=== PATIENT | female | born 1995 | race Caucasian/White ===

== ENCOUNTER → 2019-04-30 12:40 | Outpatient (CLI) | payer OTHER, SELFPAY ==
[2019-05-01 08:18] LABS: Strep Grp B PCR NEG for Grp B Strep
== END ==
PROVIDERS: Visit Provider Specialist
DX: Z34.03 Encounter for supervision of normal first pregnancy, third trimester (principal); Z3A.35 35 weeks gestation of pregnancy
CPT/HCPCS: 87653

== ENCOUNTER 2019-05-20 10:31 | Inpatient (IN) | payer OTHER, SELFPAY ==
[2019-05-20 12:28] VITALS: BP 126/84
[2019-05-20 13:22] LABS: Add Manual Diff / Slide Review NO; Basophils Absolute Auto 0 /uL (0-100); Basophils Percent Auto 0.3 % (0-2); Eosinophils Absolute Auto 100 /uL (0-450); Eosinophils Percent Auto 0.5 % (2-4); Hematocrit 39.7 % (36-46); Hemoglobin 13.7 g/dL (12.0-16.0); Lymphocytes Absolute Auto 1800 /uL (1100-4500); Mean Corpuscular HGB Conc 34.6 % (30-36); Mean Corpuscular Hemoglobin 30.6 PG (26-34); Mean Corpuscular Volume 88.5 fL (80-100); Monocytes Absolute Auto 800 /uL (0-900); Neutrophils Absolute Auto 10000 /uL (1500-7000); Neutrophils Percent Auto 79.2 % (50-75); Platelet Count 145 X10^3/uL (150-400); Red Blood Cell Count 4.48 X10^6/uL (4.0-5.2); Red Cell Distribution Width 13.2 % (11.6-14.8); White Blood Cell Count 12.6 X10^3/uL (4.5-11.0)
--- NOTE | 2019-05-20 13:55 | P.HPOB_ITS ---
OB HPI Date/Time Date of admission: 05/20/19 Date Patient Seen: 05/20/19 Time Patient Seen: 13:55 History of Present Condition Chief complaint: OBSERVATION : 1 Para: 0 Estimated Date of Delivery: 05/30/19 Estimated Gestational Age (weeks): 38 Narrative: Krystyna Meadows is a 23 year old female admitted with spontaneous rupture of membranes History of Present care: good care, initiated at week # (10), number of visits (11) and pounds weight gain (66) Dating criteria: LMP confirmed by 1st trimester US Ultrasounds: normal mid trimester US Abnormal ultrasound findings: Bicornuate uterus Obstetrical complications: none Medical complications: none Preadmission Labs Blood type: O (+) positive -: Antibody screen: negative, GBS status: negative, HBsAG: negative and HIV: negative -: Chlamydia screen: not detected and Gonorrhea screen: not detected -: Rubella: immune HCAB: negative 1 hr GTT: 102 Evaluation Evaluation Baseline heart rate: 140 Variability: Moderate (11-25) monitor accelerations: Present monitor decelerations: Absent Contraction Frequency (minutes): 0 Category of Tracing: I Cervical dilation (cm): 1 Cervical effacement (%): 70 station: 0 Laboratory results: Laboratory Tests 05/20/19 13:00 WBC 12.6 H RBC 4.48 Hgb 13.7 Hct 39.7 MCV 88.5 MCH 30.6 MCHC 34.6 RDW 13.2 Plt Count 145 L Neut % (Auto) 79.2 H Lymph % (Auto) 14.0 L Garrett % (Auto) 6.0 Eos % (Auto) 0.5 L Baso % (Auto) 0.3 Neut # (Auto) 96409 H Lymph # (Auto) 1800 Garrett # (Auto) 800 Eos # (Auto) 100 Baso # (Auto) 0 Non-invasive Membranes Rupture Test: positive [facility] Medical History (Updated 03/08/19 @ 10:55 by Luna Granado MD) Bicornuate uterus (Acute) Family history of malignant neoplasm of colon in first degree relative diagnosed when younger than 60 years of age (Acute) Surgical History (Updated 03/06/19 @ 20:37 by Lupe Tong) Anesthesia (Resolved) History of colonoscopy (Resolved ~2016) Family History (Updated 03/06/19 @ 20:38 by Lupe Tong) Sister Colon cancer Sister Melanoma Grandmother Lung cancer Social History Smoking Status: Never smoker Meds Home Medications and Allergies Home Medications Medication Instructions Recorded Confirmed Type prenat.vits,makenna,[id number] 1 tab PO DAILY 02/28/19 02/28/19 History breast pump #1 each 03/28/19 03/28/19 Rx Allergies Allergy/AdvReac Type Severity Reaction Status Date / Time naproxen Allergy Severe Hives and Verified 02/28/19 15:39 Vision Loss Review of Systems Review of Systems Narrative: No headache, scotomata, epigastric pain. Good movement. No fevers. Spontaneous rupture membranes. ROS Unobtainable: All systems reviewed & are unremarkable except as noted in HPI and below Exam Vital Signs (past 8 hours): - Blood pressure 124/84, pulse 98, temperature 99? 05/20/19 12:28 Blood Pressure 126/84 Narrative Exam Narrative: HEENT exam within normal limits. Lungs are clear to auscultation percussion. Heart is regular rate and rhythm no S3-S4 or murmurs. Abdomen is soft, nontender. Extremities without edema and nontender Objective Labs Result Diagrams: 05/20/19 13:00 Labs: Laboratory Results - last 24 hr 05/20/19 13:00 WBC 12.6 H RBC 4.48 Hgb 13.7 Hct 39.7 MCV 88.5 MCH 30.6 MCHC 34.6 RDW 13.2 Plt Count 145 L Neut % (Auto) 79.2 H Lymph % (Auto) 14.0 L Garrett % (Auto) 6.0 Eos % (Auto) 0.5 L Baso % (Auto) 0.3 Neut # (Auto) 10174 H Lymph # (Auto) 1800 Garrett # (Auto) 800 Eos # (Auto) 100 Baso # (Auto) 0 Assessment and Plan Assessment and Plan Assessment and Plan narrative: 38 week 4 day gestation with bicornuate uterus, spontaneous rupture membranes not in labor, vertex fetus If no onset of labor will begin Pitocin Time Spent with Patient Total time spent with greater than 50% in coordination of care (as documented) at patient's floor/unit and/or counseling patient:: less than 15 minutes
[2019-05-20] MEDS: LACTATED RINGERS 1,000 ML 100 ML IV (15:27)
[2019-05-20] MEDS: OXYTOCIN PREMIX 30 UNIT/500 ML PLAST..BAG IV (15:28)
[2019-05-21] MEDS: LACTATED RINGERS 1,000 ML 100 ML IV ×2 (01:49→02:25)
[2019-05-21] MEDS: FENT 2MCG/ML BUPIV 0.125% EPI 200 MCG/100 ML PLAST..BAG 13 MCG EPIDURAL ×2 (02:26)
[2019-05-21] MEDS: CEFAZOLIN 2 GM/100 ML FROZ.PIGGY IV (08:30)
--- NOTE | 2019-05-21 08:36 | SUR.OPER ---
Lithotomy on padded OR bed, head on pillow, arms secured on padded arm boards at <90 degrees abduction. Legs secured in padded yellow fins stirrups.
[2019-05-21 08:50] VITALS: BP 106/68; PULSE 106; RESP 16; TEMP 36.4; O2SAT 99
[2019-05-21 08:53] VITALS: BP 108/63; PULSE 109; RESP 16; O2SAT 100
[2019-05-21 08:57] VITALS: BP 113/81; PULSE 97; RESP 18; O2SAT 100
[2019-05-21 09:03] VITALS: BP 123/72; PULSE 99; RESP 20; O2SAT 99
[2019-05-21 09:08] VITALS: BP 121/85; PULSE 95; RESP 17; O2SAT 98
[2019-05-21 09:11] VITALS: BP 115/79; PULSE 91; RESP 16; TEMP 37.3; O2SAT 100
--- NOTE | 2019-05-21 09:22 | SUR.PHASEI ---
Turned patient over and assessed jo-pad. Moderate amount of lochia noted. Fresh jo pad applied. Denies any pain.
--- NOTE | 2019-05-21 09:33 | SUR.PHASEI ---
Transferred patient to L&D in stable condition. Placenta contents in red bio-hazard back delivered to L&D unit.
--- NOTE | 2019-05-21 09:45 | P.PCNOB_ITS ---
Events: Meconium Stained Fluid (Thick) Labor & Delivery Delivery date: 05/21/19 Intrapartal events: Prolonged Latent Phase Delivery augmentation: pitocin Delivery monitor: external FHT and external uterine Route of delivery: L&D Laceration Description: Perineal - 1st Degree Delivery repair: chromic (3 0) Estimated blood loss (mL): 450 (Including blood loss in the operating room) Anesthesia type: Epidural Complications: Retained placenta requiring manual removal with curetting to remove retained placenta Narrative: Patient arrived on Labor and delivery after spontaneous rupture membranes with thick meconium. She did not go into active labor so Pitocin augmentation was started she received an epidural catheter for pain control. heart tones category 1 to category 2 throughout labor. She had a spontaneous vaginal delivery and the placed on maternal abdomen. After cord stopped pulsating the cord was clamped, cut, and cord bloods obtained. The placenta did not deliver spontaneously show she was taken to the operating room for manual removal. See the operative report for that portion of the delivery. Viable male doing well weighing 2916 g, 6 lb 7 oz. [place] Baby 1: gender: Male Presentation: vertex position: Right Occiput Anterior Placenta delivery description: Spontaneous cord vessel description: 3 Vessels score (1 min): 8 score (5 min): 9 Plan for aftercare: Routine post vaginal delivery with curettage for retained placenta
--- NOTE | 2019-05-21 09:49 | PM.OP.1 ---
Operative Date/Time/Diagnoses Date of procedure: 05/21/19 Time of procedure: 09:49 Pre-op diagnosis: Retained placenta Post-op diagnosis: same Procedure & Clinicians Procedure: Manual removal of placenta with uterine curettage Same procedure as scheduled: Yes Indications: Retained placenta Surgeon: Luna Granado Click Yes if Unassisted: Yes Anesthesia Type: Epidural Operative Notes Findings: Retained placenta with bicornuate uterus Closure Type: not applicable Specimen(s): other (Retained placenta ) Estimated Blood Loss (mL): 450 Blood products transfused: none Procedure in detail: Patient was brought to the operating room where she was placed in low Yellofin stirrups and prepped and draped in the usual sterile fashion. The bladder was drained with an in-and out catheter. A check system was reviewed with the staff in the room. She received 2 g of Ancef. A ring forcep was placed on the anterior and the posterior lip of the cervix. The placenta was manually removed from the right side of the uterus. Curettage was performed to remove the remainder of the retained products. It appeared that she had minimal bleeding at the end of the procedure. She went to recovery room in good condition. Counts of instruments and sponges were correct. Complications: none Post-operative Condition: stable Disposition: other ( Center) Plan for aftercare: Routine post vaginal delivery.
[2019-05-21] MEDS: IBUPROFEN 600 MG TABLET PO ×2 (11:14→19:41)
[2019-05-22] MEDS: IBUPROFEN 600 MG TABLET PO ×2 (04:07→09:48)
[2019-05-22 07:32] LABS: Add Manual Diff / Slide Review NO; Basophils Absolute Auto 0 /uL (0-100); Basophils Percent Auto 0.2 % (0-2); Eosinophils Absolute Auto 200 /uL (0-450); Hematocrit 32.1 % (36-46); Hemoglobin 10.8 g/dL (12.0-16.0); Lymphocytes Absolute Auto 2700 /uL (1100-4500); Lymphocytes Percent Auto 17.5 % (25-40); Mean Corpuscular HGB Conc 33.5 % (30-36); Mean Corpuscular Hemoglobin 30.5 PG (26-34); Mean Corpuscular Volume 90.8 fL (80-100); Monocytes Absolute Auto 1100 /uL (0-900); Neutrophils Absolute Auto 11600 /uL (1500-7000); Neutrophils Percent Auto 74.3 % (50-75); Platelet Count 107 X10^3/uL (150-400); Red Blood Cell Count 3.53 X10^6/uL (4.0-5.2); Red Cell Distribution Width 13.3 % (11.6-14.8); White Blood Cell Count 15.6 X10^3/uL (4.5-11.0)
[2019-05-22] MEDS: DOCUSATE 100 MG CAPSULE PO ×2 (08:28→09:47)
--- NOTE | 2019-05-22 09:32 | P.DS_ITS ---
Discharge Providers Provider Date of admission: 05/20/19 10:31 Discharge Date: 05/22/19 Primary care physician: Luna Granado MD Consults: 05/20/19 12:25 Consult to Anesthesiology Urgent Comment: Consulting Provider: Anesthesiologist Reason for consultation: Epidural Has provider been notified: No 05/22/19 09:42 Consult to Coat Finisher Routine Comment: Discharge provider: Luna Granado MD Summary Hospital Course Date Patient Seen: 05/22/19 Time Patient Seen: 09:33 Procedures: Pitocin augmentation of labor, epidural catheter, spontaneous vaginal delivery, manual removal of placenta with curettage Hospital Course: Patient arrived on Labor and delivery with spontaneous rupture membranes. She did not go into labor so was started on Pitocin. She received an epidural catheter for pain control. She had a spontaneous vaginal delivery. She had a retained placenta that required manual removal and curettage in the operating room. Patient denies any headaches, scotomata, epigastric pain. She is urinating and ambulating well. Pain is under control. Both mother doing well. Peripartum Data Infant Delivery Method: Natural Vaginal Laceration description: Vaginal - 1st Degree complications: retained placenta [place] 1: Gender: Male Disposition of : home Discharge Diagnosis (1) Vaginal delivery: Status: Acute (2) Retained placenta or membranes without hemorrhage: Status: Acute Status at Discharge Cognitive/behavioral status at discharge: oriented Functional status at discharge: independent ambulation Overall status at discharge: patient is progressing back to baseline Time Spent with Patient Time attestation: Total time spent providing and/or coordinating discharge services: Time spent: Less than 30 minutes Objective Labs Result Diagrams: 05/22/19 06:25 Labs: Laboratory Results - last 24 hr 05/22/19 06:25 WBC 15.6 H RBC 3.53 L Hgb 10.8 L Hct 32.1 L MCV 90.8 MCH 30.5 MCHC 33.5 RDW 13.3 Plt Count 107 L Neut % (Auto) 74.3 Lymph % (Auto) 17.[address] [place] % (Auto) 7.0 Eos % (Auto) 1.0 L Baso % (Auto) 0.2 Neut # (Auto) 61516 H Lymph # (Auto) 27[address] [place] # (Auto) 1100 H Eos # (Auto) 200 Baso # (Auto) 0 Exam Vital Signs (past 8 hours): Blood pressure 111/71, pulse of 90, temperature 97.9 ? Oxygen Delivery Method Room Air Narrative Exam Narrative: Abdomen is soft, nontender. Uterus is firm, at U, nontender. Repair is intact. Lochia is mild. Extremities without edema and nontender. Blood type is O positive, she is rubella immune, she received the Tdap in the 3rd trimester Discharge Plan Discharge Plan Patient Disposition: Home Discharge orders & Medications Prescriptions: New ibuprofen 600 mg Tablet 600 mg PO Q6HR PRN (Reason: Pain, Mild (1-3)) Qty: 20 RF: 0 Continued prenat.vits,makenna,[id number] Tablet 1 tab PO DAILY RF: 0 No Action (DME) breast pump [Pump In Style Advanced] Device See Rx Instructions .ROUTE .MEDSUPPLY Qty: 1 RF: 0 Follow up/Referrals: Luna Granado MD [Primary Care Provider] - 1 Month Diet/Activity/Treatments Diet: Regular Activity: Nothing in vagina for 4 weeks. Skin/Wound/Dressing Care Report to your healthcare provider any signs of infection, such as:: chills, fever and increased pain Visit Report/Discharge Packet Stand Alone Forms: Discharge: Care, Surgery Discharge Discharge Data Primary Care Provider: Luna Granado
[2019-05-22] MEDS: FERROUS GLUCONATE 324 MG TABLET PO (09:48)
== END 2019-05-22 16:30 | disposition home or self-care (01) | DRG 807 ==
PROVIDERS: Admitting Provider Specialist; PCP Specialist; Visit Provider Specialist
PROC: 10E0XZZ Delivery of Products of Conception, External Approach (ICD-10-PCS; CPT 58120; principal; 2019-05-21 08:30)
DX: O77.0 Labor and delivery complicated by meconium in amniotic fluid (principal); Z37.0 Single live birth; O63.0 Prolonged first stage (of labor); O73.0 Retained placenta without hemorrhage; Z3A.38 38 weeks gestation of pregnancy; O70.0 First degree perineal laceration during delivery; O34.03 Maternal care for unspecified congenital malformation of uterus, third trimester; Q51.3 Bicornate uterus
CPT/HCPCS: 01967; 36415; 59050; 59160; 59410; 84112; 85025; 86850; 86900; 86901; G0379; J0690; J2590

== ENCOUNTER → 2020-03-31 14:14 | Outpatient (CLI) | payer OTHER, SELFPAY ==
[2020-04-02 06:36] LABS: COVID19 Sendout Not Detected (Not Detect)
== END ==
PROVIDERS: PCP Specialist; Visit Provider Physician Assistant
DX: Z11.59 Encounter for screening for other viral diseases (principal)
CPT/HCPCS: 87635

== ENCOUNTER 2020-04-03 07:20 | Day surgery (SDC) | payer OTHER, SELFPAY ==
[2020-04-03 07:50] VITALS: BP 123/77; PULSE 111; RESP 18; TEMP 36.8; O2SAT 99; BMI 26.6
[2020-04-03] MEDS: LACTATED RINGERS 1,000 ML 200 ML IV (07:58)
--- NOTE | 2020-04-03 08:36 | PM.HP.1 ---
History of Present Illness History of Present Illness Date Patient Seen: 04/03/20 Time Patient Seen: 08:36 Chief complaint: SDC Narrative: The patient is a woman who sister had colon cancer at age 26. She had her 1st colonoscopy 5 years ago. She had a polyp removed at that time and was advised to have a colonoscopy in 3 years but then was and now is here for a follow-up colonoscopy. She did see a small amount of blood in her stool the week ago Patient History Medical History Bicornuate uterus (Acute) Family history of malignant neoplasm of colon in first degree relative diagnosed when younger than 60 years of age (Acute) Retained placenta or membranes without hemorrhage (Resolved) Vaginal delivery (Acute) Surgical History Anesthesia (Resolved) History of colonoscopy (Resolved ~2016) Family & Social History Family History Sister Colon cancer Sister Melanoma Grandmother Lung cancer Social History: household members spouse Tobacco & Substance use: Smoking Status Never smoker alcohol intake current alcohol intake frequency holiday/special occasion Substance Use Type does not use Meds Home Medications and Allergies Allergies Allergy/AdvReac Type Severity Reaction Status Date / Time naproxen Allergy Severe Hives and Verified 04/03/20 07:44 Vision Loss Review of Systems Review of Systems ROS: Yes All systems reviewed with the patient and are negative except as otherwise documented Exam Vital Signs (past 8 hours): - 04/03/20 07:50 Temperature 98.2 F Pulse Rate 111 H Respiratory Rate 18 Blood Pressure 123/77 Pulse Oximetry 99 Oxygen Delivery Method Room Air Narrative Exam Narrative: Pleasant cooperative patient no apparent distress. Lungs are clear to auscultation. No rales or rhonchi. Heart regular rate and rhythm no murmur gallop. Abdomen is soft nontender without mass. No obvious hernias. Patient is alert and oriented x3. Assessment & Plan Assessment & Plan narrative: The patient for a screening colonoscopy. I have discussed the procedure with them. Risks of bleeding, perforation which would necessitate major operation, failure to find remove all lesions, the potential tattoo were all discussed. All questions were answered. They wished to proceed. I also talked to the patient by considering genetic testing.
--- NOTE | 2020-04-03 08:42 | PM.PREOP ---
Pre-operative Note COVID-19 COVID-19 status: Negative Result date/Date tested (Pos, Neg/Pending): 03/31/20 Interval Note History & Physical reviewed/Exam performed by Physician: Yes Changes to H&P: No ASA Class (for procedural sedation): I
[2020-04-03] MEDS: MIDAZOLAM 5 MG/5 ML VIAL IV (08:47)
[2020-04-03] MEDS: fentaNYL 250 MCG/5 ML INJ IV (08:49)
--- NOTE | 2020-04-03 09:04 | PM.OP.ENDO ---
Operative Date/Time/Diagnoses Date of procedure: 04/03/20 Time of procedure: 09:04 Pre-op diagnosis: Sister with colon cancer at age 26. Screening exam in high risk patient. Last colonoscopy 5 years ago. Post-op diagnosis: same Procedure & Clinicians Study performed: Colonoscopy Same procedure as scheduled: Yes Indications: Screening Surgeon: Demarco Mcclendon Procedure Notes SCOAP/Timeout: Performed Procedure in detail: The patient was placed in the left lateral decubitus position and underwent IV sedation directed by the surgeon consisting of fentanyl and Versed. Digital exam was unremarkable except for an increased sphincter tone. The scope was inserted and advanced through the rectum into the sigmoid, descending, transverse, and ascending colon. No lesions were seen pressure was applied and we made our way to the cecum.. The cecum was reached identified by the ileocecal valve and the appendiceal opening. The ileocecal valve was successfully cannulated. The terminal ileum was normal in appearance. The scope was gradually brought out. No Polyps were found. The scope ultimately was retroflexed in the rectum. The appearance was normal except for minor scarring on small hemorrhoids. The scope was removed and the patient tolerated the procedure well. The prep was very good Scope withdrawal time: 7-1/2 minutes Sedation minutes: 20 Post-procedure Recommendations: Colonscopy in 5 years Follow up: as needed Disposition: PACU
[2020-04-03 09:06] VITALS: BP 120/71; PULSE 99; RESP 25; TEMP 37; O2SAT 97
[2020-04-03 09:11] VITALS: BP 115/67; PULSE 99; RESP 13; O2SAT 97
[2020-04-03 09:16] VITALS: BP 104/65; PULSE 105; RESP 20; TEMP 36.9; O2SAT 97
[2020-04-03 09:30] VITALS: BP 101/66; PULSE 87; RESP 15; TEMP 36.4; O2SAT 95
[2020-04-03 10:00] VITALS: BP 99/60; PULSE 72; RESP 15; TEMP 36.2; O2SAT 96
--- NOTE | 2021-04-30 15:30 | P.CALLCOV_ITS ---
Call Coverage Note Note Date of Patient Contact: 04/30/21 Time of Patient Contact: 15:30 Narrative of Care Provided: Krystyna, currently 8 wks EGA, called w/ c/o UTI and request for antibiotics. Has noticed progressively worsening dysuria, urgency and frequency, now feeling bladder and urethra discomfort at rest. No fever or hematuria. No back pain. Rx Amoxicillin/clavulanate 875mg BID sent to [facility], per her request, with instructions to go to urgent care if unable to wait until pharmacy opens.
== END 2020-04-03 10:12 | disposition home or self-care (01) ==
PROVIDERS: Referring Provider Specialist; Visit Provider Specialist
PROC: 0DJD8ZZ Inspection of Lower Intestinal Tract, Via Natural or Artificial Opening Endoscopic (ICD-10-PCS; CPT 45378; principal; 2020-04-03 08:30)
DX: Z12.11 Encounter for screening for malignant neoplasm of colon (principal); Z80.0 Family history of malignant neoplasm of digestive organs; Z86.010 Personal history of colon polyps; K64.8 Other hemorrhoids
CPT/HCPCS: 45378; 99152; J2250; J3010

== ENCOUNTER → 2021-05-05 08:26 | Outpatient (CLI) | payer OTHER, SELFPAY ==
[2021-05-05 09:02] LABS: Add Manual Diff / Slide Review NO; Basophils Absolute Auto 0 /uL (0-100); Basophils Percent Auto 0.3 % (0-2); Eosinophils Absolute Auto 100 /uL (0-450); Eosinophils Percent Auto 1.8 % (2-4); Hematocrit 40.2 % (36-46); Hemoglobin 13.8 g/dL (12.0-16.0); Lymphocytes Absolute Auto 1400 /uL (1100-4500); Lymphocytes Percent Auto 21.5 % (25-40); Mean Corpuscular HGB Conc 34.3 % (30-36); Mean Corpuscular Hemoglobin 29.3 PG (26-34); Mean Corpuscular Volume 85.4 fL (80-100); Monocytes Absolute Auto 500 /uL (0-900); Monocytes Percent Auto 7.6 % (3-14); Neutrophils Absolute Auto 4400 /uL (1500-7000); Neutrophils Percent Auto 68.8 % (50-75); Platelet Count 168 X10^3/uL (150-400); Red Blood Cell Count 4.71 X10^6/uL (4.0-5.2); Red Cell Distribution Width 13.1 % (11.6-14.8); White Blood Cell Count 6.4 X10^3/uL (4.5-11.0)
[2021-05-05 09:40] LABS: Appearance Urine UA CLEAR; Bilirubin Urine UA NEGATIVE (NEGATIVE); Color Urine UA YELLOW; Glucose Urine UA NEGATIVE (Negative); Ketones Urine UA NEGATIVE (NEGATIVE); Leukocyte Esterase Urine UA TRACE (NEGATIVE); Nitrite Urine UA NEGATIVE (Negative); Occult Blood Urine UA NEGATIVE (Negative); Protein Urine UA NEGATIVE (Negative); Specific Gravity Urine UA 1.015 (1.000-1.035); Urobilinogen Urine UA 0.2 E.U./dL (0.2)
[2021-05-05 10:02] LABS: pH Urine UA 6.5 (4.5-8.0)
[2021-05-05 10:55] LABS: Hepatitis B Surface Antigen NEGATIVE s/c (NEGATIVE)
[2021-05-05 11:11] LABS: HIV 1 & 2 Ab/Ag 4th Gen Combo NEGATIVE (NEGATIVE); Hep C Virus Ab w/Reflex Quant NEGATIVE s/c (NEGATIVE)
[2021-05-05 14:57] LABS: Urine N gonorrhoeae NOT DETECTED
[2021-05-05 15:08] LABS: Urine Chlamydia NOT DETECTED
[2021-05-06 10:07] LABS: RPR Screen Non Reactive (Non Reactive)
[2021-05-06 11:24] LABS: Varicella IgG Antibody 610 index (Immune >165)
== END ==
PROVIDERS: Referring Provider Specialist; Visit Provider Specialist
DX: Z34.81 Encounter for supervision of other normal pregnancy, first trimester (principal); Z3A.09 9 weeks gestation of pregnancy
CPT/HCPCS: 36415; 80055; 81003; 86787; 86803; 86850; 86900; 86901; 87086; 87389; 87491; 87591

== ENCOUNTER → 2021-05-19 09:56 | Outpatient (CLI) | payer OTHER, SELFPAY ==
--- NOTE | 2021-05-19 09:59 | DIET.PN1 ---
Addendum entered by Imani Montenegro 05/19/21 10:58: 1. diet recall shows pt may not meet FULLERETTE for calcium. Pt to check supplement for calcium level and if not meeting need through supp + food will call RD regarding supplementing with 250mg daily. 2. diet recall shows pt using non-iodized sea salt at home. Pt to check supplement for iodine level and if not meeting need through supp, pt will switch to iodized sea salt during or use wakame seaweed in soups to meet needs. Original Note: Dietary Progress Note Assessment: 25y F 11w December 07 due date. Pt has a child, 2y M, gained 70# (lost 40#) desires assistance with healthy eating during to avoid excessive weight gain. Pt did not have morning sickness in first , has this c vomiting. Pt took B6 and Unisom without relief, started on anti-emetics caused constipation which she [facility] and started bowel regimen- colase, miralax, suppositories. Carbs are soothing her morning sickness right now: bagel, breakfast sandwich, saltine crackers, goldfish difficulty with vegetables at this time Gatorade, Body Armor, jemima jaycee Pt currently taking vitamins at night. Usual Day (prepregnancy): B: eggs and toast L: leftovers (pasta, chicken, salad) D: chicken, brussels sprouts, healthy dinners sometimes popcorn while watching tv before bed doesn't eat much fish Physical Activity: Big walks with son in [facility] during summer but in winter less activity, wants help idea generating. Sleep: waking up to urinate twice per night now otherwise sleeps well, other child sleeping through night Ht: 5'8 Wt: 180# Current Weight: 185# Nutrition Diagnosis: predicted excessive weight gain in r/t physical inactivity inadequate intake dietary fiber aeb pt gained 70# with first only losing 40# after delivery, pt reports low physical activity in winter secondary to weather, pt diet high in simple carbs and low in dietary fiber. Interventions: 1. Discussed nutrition using several handouts- one from [facility], another from my nutrition class. Covered healthy plate balance, food safety, nutrients of concern, and MNT for constipation (increase fluids and soluble fiber). 2. Using food models, practiced building healthy plate meals and snacks. Discussed beans and nuts as good soluble fiber source but to portion control nuts secondary to high kcals levels. 3. Discussed barriers to regular physical activity. Encouraged 10 minute walks after meals with dinner walk being family walk. Discussed possibility of pt joining [facility] for swimming with toddler, walking on track, or utilizing their on site child advocate for pt to take yoga class, walk, swim, etc. 4. Introduced pt to meal plan from [employer] created by [place]. Monitoring/Evaluations: f/u prn Electronically Signed by: Imani Montenegro 05/19/21 09:59 Clinical Dietitian [address] [id number]
== END ==
PROVIDERS: Referring Provider Specialist; Visit Provider Specialist
DX: Z71.3 Dietary counseling and surveillance (principal); Z34.81 Encounter for supervision of other normal pregnancy, first trimester; Z3A.11 11 weeks gestation of pregnancy
CPT/HCPCS: 97802

== ENCOUNTER → 2021-08-06 09:18 | Outpatient (CLI) | payer OTHER, SELFPAY ==
--- NOTE | 2021-08-06 09:20 | DI.US.S_ITS ---
PROCEDURE: US OB >= 14 WEEKS FETUS INDICATIONS: ANATOMY OUTSIDE/PRIOR DATING DATA: First dating scan (date and location): 05/05/2021. Estimated date of delivery (SINDHU) from first dating scan: 12/07/2020. The calculations are made using the ultrasound SINDHU of 12/07/2020. TECHNIQUE: Real-time scanning was performed of the fetus, with image documentation and biometric measurements. COMPARISON: [facility], , US OB >= 14 WEEKS FETUS, 05/14/2019, 10:40. [facility], , US OB <= 14 WEEKS FETUS, 05/05/2021, 8:20. FINDINGS: General: A single living intrauterine gestation is present. Presentation: Transverse. Placenta: Placental position is anterior , without previa. Amniotic fluid index: 13.9 cm, normal range is 5-24 cm. heart rate: 125 beats per minute. Maternal cervical canal: 5.6 cm long. Normal lower limit is 2.5 cm. biometrics: Biparietal diameter: 22 weeks 5 days Head circumference: 22 weeks 4 days Abdominal circumference: 22 weeks 4 days Femur length: 22 weeks 3 days Clinically estimated gestational age: 22 weeks 3 days Composite gestational age from present scan: 22 weeks 4 days Estimated weight and percentile: 512 g; 48th percentile. Anatomic survey: Neuro: Ventricles are non-dilated at less than 10 mm. Cisterna magna is normal at 3-11 mm. Cerebellum is normal in size and morphology. Nuchal skin fold: Normal at less than 6 mm between 14-21 weeks gestational age. Face: Nose and lips are normal and the facial profile is not well seen.. Spine: No evidence for spina bifida. Heart: 4-chambered heart is present, with normal ventricular outflow tracts. Diaphragm: Diaphragm is intact. Stomach: Left-sided stomach is present. Kidneys: No hydronephrosis. Normal is less than 5 mm in 2nd trimester, less than 7 mm in 3rd trimester. Cord: 3-vessel cord has orthotopic insertion. Bladder: Normal in size. Extremities: All 4 extremities identified. IMPRESSION: 1. Normal interval growth. 2. facial profile suboptimally visualized; otherwise normal anatomy. Follow-up recommended. We strive to produce accurate, complete, and clear reports of imaging services. To assist us in improving patient care, this report was composed using standard report templates and voice recognition software. Therefore, it may contain abnormal punctuation, insertions and/or omissions. Occasional wrong-word or sound-alike substitutions may occur. Though we review the report and make efforts to correct it, we do recommend that the report be read carefully in proper context to recognize any text inaccuracies. Dictated by: Aaron SINGH Interpreted: Cedrick Pal MD on 08/06/2021 at 10:49 Transcribed by: AUGUSTIN on 08/06/2021 at 10:51 Approved by: Cedrick Pal M.D. on 08/06/2021 at 12:38
== END ==
PROVIDERS: Referring Provider Specialist; Visit Provider Specialist
DX: Z34.82 Encounter for supervision of other normal pregnancy, second trimester (principal); Z3A.22 22 weeks gestation of pregnancy
CPT/HCPCS: 76811

== ENCOUNTER → 2021-08-28 09:14 | Outpatient (CLI) | payer OTHER, SELFPAY ==
[2021-08-28 11:01] LABS: Hematocrit 36.1 % (36-46); Hemoglobin 12.4 g/dL (12.0-16.0)
[2021-08-28 11:32] LABS: GTT (PREG) 1 Hour PP 50gm Dose 86 mg/dL (76-139)
== END ==
PROVIDERS: Referring Provider Specialist; Visit Provider Specialist
DX: Z34.82 Encounter for supervision of other normal pregnancy, second trimester (principal); Z3A.22 22 weeks gestation of pregnancy
CPT/HCPCS: 36415; 82950; 85014; 85018

== ENCOUNTER → 2021-11-04 11:11 | Outpatient (CLI) | payer OTHER, SELFPAY ==
[2021-11-05 07:35] LABS: Strep Grp B PCR POS for Grp B Strep
== END ==
PROVIDERS: Visit Provider Specialist
DX: Z34.83 Encounter for supervision of other normal pregnancy, third trimester (principal); Z3A.35 35 weeks gestation of pregnancy
CPT/HCPCS: 87653

== ENCOUNTER 2021-11-11 11:50 | Outpatient (CLI) | payer OTHER, SELFPAY ==
--- NOTE | 2021-11-11 12:27 | PM.OBTRLD ---
Visit Information Visit Information Date of evaluation: 11/11/21 Primary OB Provider: Luna Granado Reason for Evaluation: Yes non-stress test non-stress test reason: other ( tachycardia) [facility] Medical History (Updated 11/11/21 @ 12:28 by Luna Granado MD) Bicornuate uterus Family history of malignant neoplasm of colon in first degree relative diagnosed when younger than 60 years of age Retained placenta or membranes without hemorrhage Vaginal delivery Surgical History Anesthesia History of colonoscopy (~2017) Family History Sister Colon cancer Sister Melanoma Two previous miscarriages, affecting care of mother, antepartum Grandmother Lung cancer Mother Retained placenta with hemorrhage Grandfather No problems noted. Grandmother Family history unknown Grandfather Heart disease Father No problems noted. 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 [employer] occupational status: unemployed ([employer] current occupational exposures/hazards: No rakesh/anabaptist: Episcopal special rakesh needs: No seatbelt use: always helmet use: Yes water heater temp set < 120 deg: Yes working smoke detector in home: Yes fire extinguisher in home: Yes carbon monox detector in home: Yes firearms in home: No do you feel safe at home: Yes Smoking Status: Never smoker second hand exposure: No alcohol intake: former (Pre-: rare, once a month or less.) substance use type: does not use during the past year weight has: decreased > 10 lbs well-balanced diet: about half the time (r/t nausea. ) daily servings fruits/ve-4 (lots of fruit.) caffeine: Yes (Coffee: 1 cup/day. Occasional soda. ) eating out: 1-3 times/week Type(s) of exercise: walking and regular exercise (Used to do [employer] gym, stopped with .) frequency: 3-4 times per week duration: 15-30 minutes/day Evaluation Evaluation Baseline heart rate: 150 Variability: Marked (>25) monitor accelerations: Present Monitor Decelerations: Absent Contraction Frequency (minutes): 0 Category of Tracing: Reactive Status: Category l Diagnosis, Plan/Disposition Final Diagnosis (1) Antepartum tachycardia affecting care of mother: Status: Acute (2) 36 weeks gestation of : Status: Acute Plan/Disposition Plan: tachycardia heard on routine OB visit. NST is reactive with baseline 150 and accelerations to the 180s. OB Disposition: home
== END 2021-11-11 12:33 | disposition home or self-care (01) ==
LOC: LABOR 12:35 → OB 11-16 10:48
PROVIDERS: Referring Provider Specialist; Visit Provider Specialist
DX: O36.8330 Maternal care for abnormalities of the fetal heart rate or rhythm, third trimester, not applicable or unspecified (principal); Z3A.36 36 weeks gestation of pregnancy
CPT/HCPCS: 59025; G0378; G0379

== ENCOUNTER 2021-11-20 22:42 | Outpatient (CLI) | payer OTHER, SELFPAY | END 2021-11-20 23:30 | disposition home or self-care (01) | LOC: OB 11-23 09:48 | PROVIDERS: Referring Provider Specialist; Visit Provider Specialist | DX: O47.1 False labor at or after 37 completed weeks of gestation (principal); Z3A.37 37 weeks gestation of pregnancy | CPT/HCPCS: 59025; G0378; G0379 ==

== ENCOUNTER 2021-11-30 06:50 | Inpatient (IN) | payer OTHER, SELFPAY ==
--- NOTE | 2021-11-30 07:37 | P.HPOB_ITS ---
OB HPI Date/Time Date of admission: 11/30/21 Date Patient Seen: 11/30/21 Time Patient Seen: 07:37 History of Present Condition Chief complaint: INDUCTION : 2 Para: 1 Estimated Date of Delivery: 12/07/21 Estimated Gestational Age (weeks): 39 Narrative: Krystyna Meadows is a 26 year old female admitted for induction for maternal discomfort Indications Indication for induction OB: maternal discomfort History of Present care: good care, initiated at week # (9), number of visits (12) and pounds weight gain (53) Dating criteria: LMP confirmed by 1st trimester US Ultrasounds: normal mid trimester US Obstetrical complications: none Medical complications: none Preadmission Labs Blood type: O (+) positive -: Antibody screen: negative, GBS status: positive, HBsAG: negative, HIV: negative and RPR/VDLR: negative -: Chlamydia screen: not detected and Gonorrhea screen: not detected -: Rubella: immune and Varicella: immune HCAB: negative 1 hr GTT: 86 Prior (ies) History: 05/21/19 38.5 weks 8 lb 7 oz [facility] Evaluation Evaluation Baseline heart rate: 145 Variability: Moderate (11-25) monitor accelerations: Present Monitor Decelerations: Absent Category of Tracing: Reactive Status: Category l Dilation (cm): 3 Effacement (%): 80 station: -1 Position of cervix: anterior Consistency: [facility] History (Updated 11/26/21 @ 11:09 by Luna Granado MD) Bicornuate uterus Family history of malignant neoplasm of colon in first degree relative diagnosed when younger than 60 years of age Retained placenta or membranes without hemorrhage Vaginal delivery Surgical History Anesthesia History of colonoscopy (~2017) Family History Sister Colon cancer Sister Melanoma Two previous miscarriages, affecting care of mother, antepartum Grandmother Lung cancer Mother Retained placenta with hemorrhage Grandfather No problems noted. Grandmother Family history unknown Grandfather Heart disease Father No problems noted. 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 ) daily servings fruits/ve-4 (lots of fruit.) caffeine: Yes (Coffee: 1 cup/day. Occasional soda. ) eating out: 1-3 times/week Type(s) of exercise: walking and regular exercise (Used to do [employer], stopped with .) frequency: 3-4 times per week duration: 15-30 minutes/day Meds Home Medications and Allergies Home Medications Medication Instructions Recorded Confirmed Type prenat.vits,makenna,hqh-zlja-pamen 1 tab PO DAILY 04/24/21 11/11/21 History Allergies Allergy/AdvReac Type Severity Reaction Status Date / Time naproxen Allergy Severe Hives and Verified 11/11/21 12:20 Vision Loss Review of Systems Review of Systems Narrative: Patient denies headaches, scotomata, epigastric pain. Good movement. No regular contractions. No leakage of fluid. OB Exam Narrative Exam Narrative: Blood pressure 132/72, pulse of 110, temperature 97.9? HEENT exam within normal limits. Lungs are clear to auscultation percussion. Heart is regular rate and rhythm no S3-S4 murmurs. Abdomen is gravid. Fetus is vertex. Extremities are nontender. Assessment and Plan Assessment and Plan Assessment and Plan narrative: 39 week gestation admitted for Pitocin induction for maternal discomfort. Anticipate vaginal delivery. Patient has a history of retained placenta she will be monitored for .
[2021-11-30 07:58] LABS: Add Manual Diff / Slide Review NO; Basophils Absolute Auto 100 /uL (0-100); Basophils Percent Auto 0.7 % (0-2); Eosinophils Absolute Auto 100 /uL (0-450); Eosinophils Percent Auto 1.1 % (2-4); Hematocrit 35.8 % (36-46); Hemoglobin 12.2 g/dL (12.0-16.0); Lymphocytes Absolute Auto 1700 /uL (1100-4500); Lymphocytes Percent Auto 16.6 % (25-40); Mean Corpuscular HGB Conc 34.1 % (30-36); Mean Corpuscular Hemoglobin 29.5 PG (26-34); Mean Corpuscular Volume 86.4 fL (80-100); Monocytes Absolute Auto 900 /uL (0-900); Monocytes Percent Auto 8.6 % (3-14); Neutrophils Absolute Auto 7500 /uL (1500-7000); Platelet Count 130 X10^3/uL (150-400); Red Blood Cell Count 4.14 X10^6/uL (4.0-5.2); Red Cell Distribution Width 13.1 % (11.6-14.8); White Blood Cell Count 10.2 X10^3/uL (4.5-11.0)
[2021-11-30] MEDS: LACTATED RINGERS 1,000 ML 100 ML IV (08:10)
[2021-11-30] MEDS: PENICILLIN G POTASSIUM 5,000,000 UNIT in DEXTROSE 5% IN WATER 250 ML 250 UNIT IV (08:11)
[2021-11-30 08:29] LABS: COVID19 -Nasal RAPID Negative (Negative)
[2021-11-30] MEDS: OXYTOCIN PREMIX 30 UNIT/500 ML PLAST..BAG IV (08:32)
[2021-11-30 09:49] VITALS: BP 132/72
[2021-11-30] MEDS: PENICILLIN G POTASSIUM 3,000,000 UNIT/50 ML FROZ.PIGGY 100 UNIT IV (12:11)
--- NOTE | 2021-11-30 14:34 | PM.OBPNLAB ---
Date/Time Date Patient Seen: 11/30/21 Time Patient Seen: 14:35 Pain Control Pain control: epidural Pelvic Exam Dilation (cm): 5 Effacement (%): 80 station: -1 Amniotic membrane status: Ruptured (AROMed for cleard fluid) Contractions Contractions on admission: regular Monitor mode: External Pitocin rate (mU/min): 18 Contraction frequency (min): 3 Contraction duration (min): 1 Contraction pattern: Regular Contraction intensity: Moderate Status status: Category ll Heart Rate Baseline: 150 Monitor Accelerations: Present Monitor Decelerations: Absent Monitor Variability: Moderate Assessment and Plan Assessment: induction ongoing Plan: continuous present management
[2021-11-30] MEDS: FENT 2MCG/ML BUPIV 0.125% EPI 200 MCG/100 ML PLAST..BAG 12 MCG EPIDURAL (18:42)
--- NOTE | 2021-11-30 19:34 | P.PCNOB_ITS ---
Labor & Delivery Delivery date: 11/30/21 Intrapartal Events: None Induction method: per pitocin protocol Delivery augmentation: rupture of membranes Delivery monitor: external FHT and external uterine Route of delivery: L&D Laceration Description: Perineal - 1st Degree Delivery repair: chromic (3 0) Estimated blood loss (mL): 200 Anesthesia Type: Epidural Narrative: Patient arrived on Labor and delivery for induction of labor due to maternal discomfort. She was started on Pitocin. She received an epidural for pain control. She was AROMed for clear fluid. heart tones category 1 to category 2 throughout labor. Patient delivered spontaneously, over an intact perineum. A loose nuchal cord was released. The viable female infant was placed on maternal abdomen. After the cord stopped pulsating the cord was clamped, cut, and cord bloods obtained. The placenta delivered spontaneously, intact, with 3 vessels. A first-degree perineal tear was repaired with 3 0 chromic suture. Both mother doing well. [place] Baby 1: Infant gender: Female Presentation: vertex Position: Left Occiput Anterior Placenta delivery description: Spontaneous Cord Vessel Description: 3 Vessels score (1 min): 8 score (5 min): 9 Plan for aftercare: Routine care
[2021-11-30] MEDS: HYDROCODONE/ACET 5/325 TABLET 1 TAB PO (23:30)
[2021-12-01] MEDS: HYDROCODONE/ACET 5/325 TABLET 1 TAB PO ×2 (04:33→08:58)
[2021-12-01 06:27] LABS: Add Manual Diff / Slide Review NO; Basophils Absolute Auto 0 /uL (0-100); Basophils Percent Auto 0.2 % (0-2); Eosinophils Absolute Auto 100 /uL (0-450); Eosinophils Percent Auto 1.1 % (2-4); Hematocrit 32.5 % (36-46); Hemoglobin 11.1 g/dL (12.0-16.0); Lymphocytes Absolute Auto 1800 /uL (1100-4500); Lymphocytes Percent Auto 15.4 % (25-40); Mean Corpuscular HGB Conc 34.3 % (30-36); Mean Corpuscular Hemoglobin 29.8 PG (26-34); Mean Corpuscular Volume 86.9 fL (80-100); Monocytes Absolute Auto 800 /uL (0-900); Monocytes Percent Auto 6.6 % (3-14); Neutrophils Absolute Auto 9000 /uL (1500-7000); Neutrophils Percent Auto 76.7 % (50-75); Platelet Count 112 X10^3/uL (150-400); Red Blood Cell Count 3.74 X10^6/uL (4.0-5.2); Red Cell Distribution Width 13.3 % (11.6-14.8); White Blood Cell Count 11.7 X10^3/uL (4.5-11.0)
[2021-12-01] MEDS: DERMOPLAST SPRAY 20% 60 ML 1 SPRAY TOP (08:01)
--- NOTE | 2021-12-01 09:45 | PM.OBPN.1 ---
Subjective - OB Subjective Patient comments: no complaints [place] baby status: doing well and bottle feeding well [place] feeding status: exclusively bottle feeding Date Patient Seen: 12/01/21 Time Patient Seen: 09:45 Interval history: Patient is 12 hours post vaginal delivery. She complains of uterine cramping but no concerns. No headaches, scotomata, epigastric pain. She is urinating and ambulating well. Exam Vital Signs (past 8 hours): Blood pressure 124/64, pulse of 78, temperature 97.8? Narrative Exam Narrative: Abdomen is soft, nontender. Uterus is firm, at U, nontender. Mild lochia. Extremities without edema and nontender. Objective Labs Result Diagrams: 12/01/21 05:35 Labs: Laboratory Results - last 24 hr 12/01/21 05:35 WBC 11.7 H RBC 3.74 L Hgb 11.1 L Hct 32.5 L MCV 86.9 MCH 29.8 MCHC 34.3 RDW 13.3 Plt Count 112 L Neut % (Auto) 76.7 H Lymph % (Auto) 15.4 L Burnett % (Auto) 6.6 Eos % (Auto) 1.1 L Baso % (Auto) 0.2 Neut # (Auto) 9000 H Lymph # (Auto) 1800 Burnett # (Auto) 800 Eos # (Auto) 100 Baso # (Auto) 0 Assessment & Plan Plan day: 0 plan OB: routine care Time Spent With Patient Time: Total time spent is greater than 50% in coordination of care (as documented) at patient's floor/unit and/or counseling patient: Time with patient: less than 15 minutes
[2021-12-01] MEDS: IBUPROFEN 600 MG TABLET PO ×2 (10:45→18:00)
[2021-12-01] MEDS: DOCUSATE 100 MG CAPSULE PO ×2 (10:45→19:42)
[2021-12-01] MEDS: ACETAMINOPHEN 325 MG TABLET 650 MG PO ×2 (13:38→19:42)
[2021-12-02] MEDS: IBUPROFEN 600 MG TABLET PO ×2 (00:27→05:57)
[2021-12-02] MEDS: ACETAMINOPHEN 325 MG TABLET 650 MG PO (01:50)
--- NOTE | 2021-12-02 07:28 | P.DS_ITS ---
Discharge Providers Provider Date of admission: 11/30/21 06:50 Discharge Date: 12/02/21 Primary care physician: Doctor Johnson MD Consults: 11/30/21 07:15 Consult to Anesthesiology Urgent Comment: Consulting Provider: Anesthesiologist Reason for consultation: Epidural Has provider been notified: No 12/01/21 19:30 Consult to Distribution Field Engineer Routine Comment: Discharge provider: Luna Granado MD Summary Hospital Course Date Patient Seen: 12/02/21 Time Patient Seen: 07:28 Diagnoses: Induction for maternal discomfort at 39 weeks with spontaneous vaginal delivery Hospital Course: Patient was brought in for Pitocin induction. She received an epidural catheter. She had a spontaneous vaginal delivery with repair of a first-degree perineal tear. She is urinating and ambulating well. She is bottle feeding. Her bleeding is appropriate. She denies headaches, scotomata, epigastric pain. Peripartum Data Delivery Method: Natural Vaginal Laceration Description: Perineal - 1st Degree Procedures: Pitocin induction, epidural catheter, spontaneous vaginal delivery with repair of first-degree perineal tear complications: none 1: Gender: Female Disposition of : home Discharge Diagnosis (1) Vaginal delivery: Status: Acute Status at Discharge Cognitive/behavioral status at discharge: oriented Functional status at discharge: independent ambulation Overall status at discharge: patient is progressing back to baseline Time Spent with Patient Time attestation: Total time spent providing and/or coordinating discharge services: Objective Labs Result Diagrams: 12/01/21 05:35 Exam Vital Signs (past 8 hours): Blood pressure 100/69, pulse 77, temperature 97.8? Narrative Exam Narrative: Abdomen is soft, nontender. Uterus is firm, at U, nontender. Mild lochia. Extremities without edema and nontender. Patient's blood type is O positive, she is rubella immune, she received Tdap in the 3rd trimester. Discharge Plan Discharge Plan Patient Disposition: Home Discharge orders & Medications Prescriptions: New ibuprofen 600 mg Tablet 600 mg PO Q6HR PRN (Reason: Fever/Mild Pain (1-3)) Qty: 20 0RF Continued prenat.vits,makenna,[id number] Tablet 1 tab PO DAILY Follow up/Referrals: Yahaira Tarango MD [Physician] - 6 Weeks Doctor Ornelas MD [Primary Care Provider] - Diet/Activity/Treatments Diet: Regular Activity: Nothing in vagina for 6 weeks Skin/Wound/Dressing Care Report to your healthcare provider any signs of infection, such as:: chills, fever and increased pain Discharge Data Primary Care Provider: Miscellaneous,Doctor
[2021-12-02 08:27] VITALS: BP 100/69; PULSE 77; RESP 16; TEMP 36.6
== END 2021-12-02 09:45 | disposition home or self-care (01) | DRG 807 ==
PROVIDERS: Admitting Provider Specialist; Referring Provider Specialist; Visit Provider Specialist
DX: O99.824 Streptococcus B carrier state complicating childbirth (principal); Z37.0 Single live birth; Z3A.39 39 weeks gestation of pregnancy; O70.0 First degree perineal laceration during delivery; O69.81X0 Labor and delivery complicated by cord around neck, without compression, not applicable or unspecified; Z20.822 Contact with and (suspected) exposure to COVID-19
CPT/HCPCS: 01967; 36415; 59050; 59400; 85025; 86850; 86900; 86901; 87635; C9803; G0379; J2540; J2590

== ENCOUNTER → 2021-12-18 13:39 | Outpatient (CLI) | payer OTHER, SELFPAY ==
[2021-12-18 14:05] LABS: Appearance Urine UA CLEAR; Bilirubin Urine UA NEGATIVE (NEGATIVE); Color Urine UA YELLOW; Glucose Urine UA NEGATIVE (Negative); Ketones Urine UA NEGATIVE (NEGATIVE); Leukocyte Esterase Urine UA NEGATIVE (NEGATIVE); Nitrite Urine UA NEGATIVE (Negative); Occult Blood Urine UA 2+ (Negative); Protein Urine UA NEGATIVE (Negative); Urobilinogen Urine UA 0.2 E.U./dL (0.2)
[2021-12-18 14:10] LABS: Bacteria Urine Few (2-10); RBC Urine 0-1/HPF (0-5/HPF); Squamous Epithelial Cell Urine 1-5 /HPF (0-5/HPF); WBC Urine None Seen (0-5/HPF)
[2021-12-18 14:11] LABS: Culture Indicated Urine Specimen Cultured
== END ==
PROVIDERS: Referring Provider Obstetrics & Gynecology; Visit Provider Obstetrics & Gynecology
DX: N39.0 Urinary tract infection, site not specified (principal)
CPT/HCPCS: 81003; 81015; 87086